=== PATIENT | female | born 1970 | race Caucasian/White ===

== ENCOUNTER 2018-04-18 18:37 | Emergency (ER) | payer BC, SELFPAY ==
[2018-04-18 18:39] VITALS: BP 143/84; PULSE 83; RESP 16; TEMP 36.4; O2SAT 97; BMI 28.7
[2018-04-18 18:41] VITALS: O2SAT 98
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
[2018-04-18] MEDS: Acetaminophen 500 MG Tablet 1000 MG PO (19:24)
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
[2018-04-18 20:01] VITALS: BP 145/99; RESP 14
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
== END 2018-04-18 20:02 | disposition home or self-care (01) ==
PROVIDERS: Emergency Provider Emergency Medicine; Family Provider Internal Medicine; PCP Internal Medicine
DX: M25.561 Pain in right knee (principal); S16.1XXA Strain of muscle, fascia and tendon at neck level, initial encounter; V49.50XA Passenger injured in collision with unspecified motor vehicles in traffic accident, initial encounter; Y93.9 Activity, unspecified; Y92.410 Unspecified street and highway as the place of occurrence of the external cause; Y99.8 Other external cause status
CPT/HCPCS: 72040; 73564; 99284

== ENCOUNTER → 2020-08-04 | Outpatient (CLI) | payer BC, SELFPAY ==
[2020-08-04 11:30] VITALS: BMI 28.7
[2020-08-11 13:01] LABS: HPV APTIMA, High Risk Negative (Negative)
== END | disposition home or self-care (01) ==
LOC: LABSPEC 16:33
PROVIDERS: PCP Internal Medicine; Visit Provider Family Medicine
DX: Z12.4 Encounter for screening for malignant neoplasm of cervix (principal)
CPT/HCPCS: 87624; 88175; G0145